=== PATIENT | female | born 1950 | race Caucasian/White ===

== ENCOUNTER 2018-08-18 07:30 | Day surgery (SDC) | payer MEDICARE, BC ==
[~2018-08-18 07:30] MED LIST: Cefuroxime 10 MG/ML SYRINGE EYERT SCH; Lidocaine 1% PF 2 ML SDV INJECT SCH; Pilocarpine 4% Ophth Soln 15 ML Bot EYERT SCH; Polymyxin B/Trimethoprim 10 ML Bottle EYERT SCH
--- NOTE | 2018-08-18 08:08 | PCM.PREANE ---
Preanesthetic Assessment - Procedure Proposed Procedure: right cataract - Anesthesia/Transfusion/Family Hx Anesthesia History: Prior Anesthesia Without Reaction Family History of Anesthesia Reaction: No Transfusion History: No Prior Transfusion(s) - Review of Systems General: No Symptoms Pulmonary: No Symptoms Cardiovascular: No Symptoms Gastrointestinal: No Symptoms Neurological: No Symptoms Other: Reports: None - Physical Assessment NPO Status Date: 08/17/18 NPO Status Time: 20:00 Pulse: 57 O2 Sat by Pulse Oximetry: 95 Respiratory Rate: 16 Blood Pressure: 130/75 Temperature: 97.7 F Height: 5 ft 3 in Weight: 79.379 kg ASA Class: 2 Mental Status: Alert & Oriented x3 Airway Class: Mallampati = 1 Dentition: Reports: Normal Dentition, Implants Thyro-Mental Finger Breadths: 3 Mouth Opening Finger Breadths: 3 ROM/Head Extension: Full Lungs: Clear to Auscultation, Normal Respiratory Effort Cardiovascular: Regular Rate, Regular Rhythm - Allergies Allergies/Adverse Reactions: Allergies Allergy/AdvReac Type Severity Reaction Status Date / Time Iodinated Contrast- Oral and Allergy Swelling Verified 08/17/18 15:33 IV Dye [Iodinated Contrast Media - IV Dye] Penicillins Allergy Swelling Verified 08/17/18 15:33 Sulfa (Sulfonamide Allergy Redness Verified 08/17/18 15:33 Antibiotics) - Blood Blood Available: No - Acknowledgements Anesthesia Type Planned: MAC Pt an Appropriate Candidate for the Planned Anesthesia: Yes Alternatives and Risks of Anesthesia Discussed w Pt/Guardian: Yes Pt/Guardian Understands and Agrees with Anesthesia Plan: Yes PreAnesthesia Questionnaire HEENT History: Reports: Cataract Cardiovascular History: Reports: High Cholesterol, Hypertension Respiratory History: Reports: None Gastrointestinal History: Reports: None Genitourinary History: Reports: None Musculoskeletal History: Reports: None, Arthritis (pt states 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 see 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 clerk 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) Neurological History: Reports: None Psychiatric History: Reports: None Endocrine/Metabolic History: Reports: None, Obesity/BMI 30+ - Past Surgical History Head Surgeries/Procedures: Reports: None HEENT Surgical History: Reports: None GI Surgical History: Reports: Cholecystectomy, Colon (resection for desmoid tumor), Hernia, Inguinal Neurological Surgical History: Reports: Other (See Below) (neck) Musculoskeletal Surgical History: Reports: Knee Replacement ((B)) - SUBSTANCE USE Smoking Status *Q: Former Smoker Tobacco Use Within Last Twelve Months: No Second Hand Smoke Exposure: No Days Per Week of Alcohol Use: 0 Recreational Drug Use History: No - HOME MEDS Home Medications: Home Meds Aspirin [Halfprin] 81 mg PO DAILY 06/16/14 [History] Diclofenac Sodium [Voltaren 1% Gel] 100 gr TOP ASDIRECTED PRN 06/16/14 [History] Lisinopril 10 mg PO DAILY 06/16/14 [History] Meloxicam [Mobic] 15 mg PO DAILY 06/16/14 [History] Pravastatin [Pravachol] 20 mg PO DAILY 06/16/14 [History] Calcium Carb & Citrate/Vit D3 [Calcium + D3 ER Tablet] 1 tab PO DAILY 07/13/18 [ History] Carboxymethylcellulose Sodium [Thera Tears] 1 dose EYEBOTH ASDIRECTED 07/13/18 [ History] Cholecalciferol (Vitamin D3) [Vitamin D3] 5,000 unit PO DAILY 07/13/18 [History] Cyanocobalamin/Folic Acid [Vitamin K76-Yjcsd Acid] 1 tab PO DAILY 07/13/18 [ History] Magnesium 30 mg PO DAILY 07/13/18 [History] - CURRENT (IN HOUSE) MEDS Current Meds: Current Medications Brimonidine Tartrate (Alphagan 0.2% Ophth Soln) 0 ml EYERT ASDIRECTED JERARDO Stop: 08/18/18 18:00 Cefuroxime Sodium (Zinacef) 0 mg EYERT ASDIRECTED JERARDO Stop: 08/18/18 18:00 Lidocaine HCl (Xylocaine-Mpf 1%) 0 ml INJECT ASDIRECTED JERARDO Stop: 08/18/18 18:00 Ofloxacin (Ocuflox 0.3% Ophth Soln) 0 ml EYERT ONETIME JERARDO Stop: 08/18/18 18:00 Phenylephrine HCl (Sreekanth-Synephrine 2.5% Ophth Soln) 0 ml EYERT ASDIRECTED JERARDO Stop: 08/18/18 18:00 Pilocarpine HCl (Pilocar 4% Ophth Soln) 0 ml EYERT ASDIRECTED JERARDO Stop: 08/18/18 18:00 Tetracaine HCl (Tetracaine 0.5% Steri-Unit Lor) 0 ml EYERT ASDIRECTED JERARDO Stop: 08/18/18 18:00 Tropicamide (Mydriacyl 1% Oph Soln) 0 ml EYERT ASDIRECTED JERARDO Stop: 08/18/18 18:00 Discontinued Medications Cefuroxime Sodium (Zinacef) 0 mg EYERT ASDIRECTED JERARDO Stop: 08/18/18 18:00 Polymyxin/Trimethoprim Sulfate (Polytrim Ophth Soln) 0 ml EYERT ASDIRECTED JERARDO Stop: 08/18/18 18:00
[2018-08-18] MEDS: Ofloxacin 0.3% Ophth Soln 5 ML Bottle EYERT SCH ×2 (08:21→09:20)
[2018-08-18] MEDS: Brimonidine 0.2% Ophth Soln 5 ML Bottle EYERT SCH ×3 (08:26→10:23)
[2018-08-18] MEDS: Phenylephrine 2.5% Ophth Soln 2 ML Bot EYERT SCH ×5 (08:33→10:05)
[2018-08-18] MEDS: Tropicamide 1% Ophth Soln 15 ML Bottle EYERT SCH ×4 (08:38→09:40)
[2018-08-18] MEDS: Tetracaine HCl/PF 0.5% 4 ML Bottle EYERT SCH ×2 (09:56→10:14)
[2018-08-18 10:28] VITALS: BP 136/72
--- NOTE | 2018-08-18 10:28 | PCM48HPAN ---
Post Anesthesia Note - EVALUATION WITHIN 48HRS OF ANESTHETIC Vital Signs in Normal Range: Yes Patient Participated in Evaluation: Yes Respiratory Function Stable: Yes Airway Patent: Yes Cardiovascular Function Stable: Yes Hydration Status Stable: Yes Pain Control Satisfactory: Yes Nausea and Vomiting Control Satisfactory: Yes Mental Status Recovered: Yes Pulse Rate: 64 SaO2: 95 Resp Rate: 16 Temperature: 36.5 C Blood Pressure: 136/72
== END 2018-08-18 10:39 | disposition home or self-care (01) ==
LOC: JD.SDS 07:30
PROVIDERS: ATTEND Ophthalmology
DX: H25.811 Combined forms of age-related cataract, right eye (principal); I10 Essential (primary) hypertension; E78.00 Pure hypercholesterolemia, unspecified; G43.909 Migraine, unspecified, not intractable, without status migrainosus; M19.90 Unspecified osteoarthritis, unspecified site; E66.9 Obesity, unspecified; Z68.31 Body mass index [BMI] 31.0-31.9, adult; Z88.0 Allergy status to penicillin; Z88.2 Allergy status to sulfonamides; Z91.041 Radiographic dye allergy status; Z98.42 Cataract extraction status, left eye; Z96.1 Presence of intraocular lens; Z87.891 Personal history of nicotine dependence; Z79.82 Long term (current) use of aspirin; Z79.1 Long term (current) use of non-steroidal anti-inflammatories (NSAID); Z79.899 Other long term (current) drug therapy
CPT/HCPCS: 66984; A9270; J0697; C1780; J2001

== ENCOUNTER 2018-12-20 17:28 | Emergency (ER) | payer MEDICARE, BC ==
[2018-12-20 17:38] VITALS: BP 147/82
[2018-12-20] MEDS ORDERED: Sodium Chloride 0.9% 10 ML Syringe FLUSH PRN (18:18)
[2018-12-20] MEDS ORDERED: Sodium Chloride 0.9% 1,000 ML IV ONE ×2 (18:18→19:29)
--- NOTE | 2018-12-20 18:37 | EDM.PDOC ---
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 The patient states that she had a hysteroscopy done by Dr. Barlow at [facility] on December 10, she states that they removed a cyst on the vagina and 2 polyps in the uterus. The patient felt well after this. She states that around midnight last night she started having some heavy bleeding which did get better after a couple hours. She notes that she was soaking through a maxi pad every hour however. She states in the morning this subsided, but around 4 PM she noticed a gush of blood again, where she started soaking through a pad per hour again. She denies any feelings of being dizzy or lightheaded during this time. She states that there were many clots with the bleeding as well. She states that she is having some lower back pain with some abdominal cramping, similar to when she used to get periods before menopause. She states that she was able to take some Tylenol and this did help with the pain. The triage nurse noted that when she started her IV, the patient had a vasovagal reaction, her heart rate decreased to 40bpm and she became very pale. The patient notes that she does not like needles and that this is very common for her. Lower Back Pain Score (Numeric/FACES): 6 - Related Data Allergies Allergy/AdvReac Type Severity Reaction Status Date / Time Iodinated Contrast- Oral and Allergy Swelling Verified 12/20/18 20:22 IV Dye [Iodinated Contrast Media - IV Dye] Penicillins Allergy Swelling Verified 12/20/18 20:22 Sulfa (Sulfonamide Allergy Redness Verified 12/20/18 20:22 Antibiotics) Home Meds: Home Meds Aspirin [Halfprin] 81 mg PO DAILY 06/16/14 [History] Diclofenac Sodium [Voltaren 1% Gel] 100 gr TOP ASDIRECTED PRN 06/16/14 [History] Lisinopril 10 mg PO DAILY 06/16/14 [History] Meloxicam [Mobic] 15 mg PO DAILY 06/16/14 [History] Pravastatin [Pravachol] 20 mg PO DAILY 06/16/14 [History] Calcium Carb & Citrate/Vit D3 [Calcium + D3 ER Tablet] 1 tab PO DAILY 07/13/18 [ History] Carboxymethylcellulose Sodium [Thera Tears] 1 dose EYEBOTH ASDIRECTED 07/13/18 [ History] Cholecalciferol (Vitamin D3) [Vitamin D3] 5,000 unit PO DAILY 07/13/18 [History] Magnesium Glycinate [Mag Glycinate] 200 mg PO DAILY 12/20/18 [History] medroxyPROGESTERone [Provera] 10 mg PO BID #10 tab 12/20/18 [Rx] Past Medical History HEENT History: Reports: Cataract Cardiovascular History: Reports: High Cholesterol, Hypertension Respiratory History: Reports: None Gastrointestinal History: Reports: None Genitourinary History: Reports: None W[employer]ER History: Reports: Other (See Below) Other [employer]EL[employer]ER History: cyst on vagina removed and 2 polyps from uterus Musculoskeletal History: Reports: None, Arthritis Neurological History: Reports: None Psychiatric History: Reports: None Endocrine/Metabolic History: Reports: None, Obesity/BMI 30+ - Past Surgical History Head Surgeries/Procedures: Reports: None HEENT Surgical History: Reports: None GI Surgical History: Reports: Cholecystectomy, Colon, Hernia, Inguinal, Other ( See Below) Other GI Surgeries/Procedures: cecum removed Neurological Surgical History: Reports: Other (See Below) Musculoskeletal Surgical History: Reports: Knee Replacement Social & Family History - Tobacco Use Smoking Status *Q: Never Smoker - Caffeine Use Caffeine Use: Reports: Coffee - Recreational Drug Use Recreational Drug Use: No ED ROS GENERAL - Review of Systems Review Of Systems: See Below Constitutional: Reports: No Symptoms HEENT: Reports: No Symptoms Respiratory: Reports: No Symptoms Cardiovascular: Reports: No Symptoms Endocrine: Reports: No Symptoms GI/Abdominal: Reports: Abdominal Pain (lower abd/pelvic pain). Denies: Constipation, Diarrhea, Nausea, Vomiting : Reports: Other (heavy vaginal bleeding with clots) Musculoskeletal: Reports: Back Pain (low back pain) Skin: Reports: Pallor Neurological: Reports: Dizziness Psychiatric: Reports: No Symptoms ED EXAM, RENAL/ - Physical Exam Exam: See Below Exam Limited By: No Limitations General Appearance: Alert, WD/WN, No Apparent Distress (Patient is laying flat on the ER cot, is very pale but is not complaining of any dizziness.) Eye Exam: Bilateral Eye: Normal Inspection Ears: Normal External Exam Nose: Normal Inspection Throat/Mouth: Normal Inspection, Normal Lips, Normal Teeth, Normal Gums, Normal Oropharynx, Normal Voice, No Airway Compromise Head: Atraumatic, Normocephalic Neck: Normal Inspection Respiratory/Chest: No Respiratory Distress, Lungs Clear, Normal Breath Sounds, No Accessory Muscle Use, Chest Non-Tender Cardiovascular: Normal Peripheral Pulses, Regular Rate, Rhythm, No Murmur GI/Abdominal: Normal Bowel Sounds, Soft, No Distention, No Mass, Tender ( suprapubically and to RLQ) (Female) Exam: Vaginal Bleeding (on general inspection, patient has a towel between legs that is visibly soaked.) Extremities: Normal Inspection, Normal Capillary Refill Neurological: Alert, Oriented, Normal Cognition, No Motor/Sensory Deficits Psychiatric: Normal Affect, Normal Mood Skin Exam: Warm, Dry, Intact, No Rash, Pallor (generalized) Course - Vital Signs Last Recorded V/S: Last Vital Signs Temp 98.1 F 12/20/18 17:34 Pulse 76 12/20/18 17:34 Resp 18 12/20/18 17:34 BP 147/82 H 12/20/18 17:34 Pulse Ox 93 L 12/20/18 17:34 - Orders/Labs/Meds Orders: Active Orders 24 hr Category Date Time Status Notify Provider Consults [RC] ASDIRECTED Care 12/20/18 20:44 Active Oxygen Therapy Adult [Oxygen Therapy, ED] [RC] Care 12/20/18 18:19 Active ASDIRECTED Peripheral IV Care [RC] . DIRECTED Care 12/20/18 18:19 Active Consult to Physician [CONS] Stat Cons 12/20/18 20:44 Active PATIENT RETYPE [BBK] Routine Lab 12/20/18 18:52 Ordered Sodium Chloride 0.9% [Normal Saline] 1,000 ml Med 12/20/18 19:29 Active IV ASDIRECTED Sodium Chloride 0.9% [Saline Flush] Med 12/20/18 18:18 Active 10 ml FLUSH ASDIRECTED PRN Peripheral IV Insertion Adult [OM.PC] Routine Oth 12/20/18 18:18 Ordered Medication Orders Sodium Chloride (Normal Saline) 1,000 mls @ 250 mls/hr IV ASDIRECTED ONE Stop: 12/20/18 23:28 Last Admin: 12/20/18 19:30 Dose: 250 mls/hr Sodium Chloride (Saline Flush) 10 ml FLUSH ASDIRECTED PRN PRN Reason: Keep Vein Open Last Admin: 12/20/18 18:26 Dose: 10 ml Labs: Laboratory Tests 12/20/18 12/20/18 12/20/18 Range/Units 18:00 18:00 18:00 WBC 7.74 (3.98-10.04) K/mm3 RBC 4.32 (3.98-5.22) M/mm3 Hgb 12.6 (11.2-15.7) gm/L Hct 40.8 (34.1-44.9) % MCV 94.4 (79.4-94.8) fl MCH 29.2 (25.6-32.2) pg MCHC 30.9 L (32.2-35.5) g/dl RDW Std Deviation 50.1 H (36.4-46.3) fL Plt Count 183 (182-369) K/mm3 MPV 11.8 (9.4-12.3) fl Neutrophils % (Manual) 86 H (40-60) % Band Neutrophils % 0 (0-10) % Lymphocytes % (Manual) 10 L (20-40) % Atypical Lymphs % 0 % Monocytes % (Manual) 2 (2-10) % Eosinophils % (Manual) 2 (0.7-5.8) % Basophils % (Manual) 0 L (0.1-1.2) Platelet Estimate Adequate RBC Morph Comment Normal Sodium 139 (136-145) mEq/L Potassium 4.2 (3.5-5.1) mEq/L Chloride 103 (98-107) mEq/L Carbon Dioxide 29 (21-32) mEq/L Anion Gap 11.2 (5-15) BUN 25 H (7-18) mg/dL Creatinine 0.9 (0.55-1.02) mg/dL Est Cr Clr Drug Dosing 44.52 mL/min Estimated GFR (MDRD) > 60 (>60) mL/min BUN/Creatinine Ratio 27.8 H (14-18) Glucose 103 (80-115) mg/dL Calcium 9.1 (8.5-10.1) mg/dL Total Bilirubin 0.3 (0.2-1.0) mg/dL AST 22 (15-37) U/L ALT 31 (14-59) U/L Alkaline Phosphatase 89 (46-116) U/L Total Protein 7.0 (6.4-8.2) g/dl Albumin 3.4 (3.4-5.0) g/dl Globulin 3.6 gm/dL Albumin/Globulin Ratio 0.9 L (1-2) Blood Type O POSITIVE Gel Antibody Screen Negative Meds: Medications Generic Name Dose Route Start Last Admin Trade Name Freq PRN Reason Stop Dose Admin Sodium Chloride 1,000 mls @ 250 mls/hr 12/20/18 19:29 12/20/18 19:30 Normal Saline IV 12/20/18 23:28 250 mls/hr ASDIRECTED ONE Administration Sodium Chloride 10 ml 12/20/18 18:18 12/20/18 18:26 Saline Flush FLUSH 10 ml ASDIRECTED PRN Administration Keep Vein Open Discontinued Medications Generic Name Dose Route Start Last Admin Trade Name Freq PRN Reason Stop Dose Admin Sodium Chloride 1,000 mls @ 999 mls/hr 12/20/18 18:18 12/20/18 18:25 Normal Saline IV 12/20/18 19:18 999 mls/hr ONETIME ONE Administration Medroxyprogesterone Acetate 40 mg 12/20/18 20:27 12/20/18 21:20 Provera PO 12/20/18 20:28 Not Given DAILY ONE Medroxyprogesterone Acetate 10 mg 12/20/18 20:48 Provera PO 12/20/18 20:49 DAILY ONE Megestrol Acetate 40 mg 12/20/18 21:43 12/20/18 21:59 Megace 40 Mg/Ml Susp PO 12/20/18 21:44 40 mg ONETIME ONE Administration - Re-Assessments/Exams Free Text/Narrative Re-Assessment/Exam: 12/20/18 18:39 Patient presents to the ED for the evaluation of vaginal bleeding after a surgical procedure. As the ER was fairly busy, the triage nurse did put in a IV , CBC, CMP, type and screen for initial labs. I did order IV fluids to be started, as we wait for labs to determine how low she is on her hemoglobin. The patient is very pallid on exam. 12/20/18 19:11 Patient's hemoglobin is within normal limits at this ED visit. She is still getting IV fluids, and we will consult OB to see if there is any other modality they recommend for management in the ER today. 12/20/18 20:05 Dr. Cabral, OB button facing machine operator is not very worried with a hemoglobin of 12.6 today. He does not think there is any obvious sign for hospital admission at this time. The patient has gotten 1 L of fluids, and is on his second bag of fluids. He did suggest Provera 10 mg twice a day until she can be seen by the surgeon that did hysteroscopy. He states that she should call early Friday to see if she cannot be urgently seen. 12/20/18 20:42 Patient was reassessed at bedside, she is still actively bleeding per her vagina , and did pass a relatively large clot, this was almost 2 handfuls. I did call Dr. Cabral back again and let him know that she was still actively bleeding he will come in to assess the patient for possible admission for observation overnight. 12/20/18 20:52 RN informed me that she cannot find the provera in stock in the [facility]. I will d/ c the order and let Dr. Cabral order what he would like to be given. 12/20/18 21:43 Dr. Cabral did come in to evaluate the patient, the patient is not actively bleeding per vagina at this time. He did discuss the option for admission versus observation at home. The patient wishes to go home at this time. If she were worried about her . He is looking for a suitable replacement to the Provera, as we do not stock in the hospital. [facility] emergency department is open tomorrow from 1 to 3 PM, so she could get Provera from there. But as stated above he would like to have her have something in the ED tonight to start. 12/20/18 21:57 Dr. Cabral has ordered Megace to be given to the patient tonight, and I will provide the patient with prescription for Provera 10 mg twice a day to the [facility] located in [facility] emergency department. Departure - Departure Time of Disposition: 22:12 Disposition: Home, Self-Care 01 Condition: Fair Clinical Impression: Excessive vaginal bleeding - Discharge Information *PRESCRIPTION DRUG MONITORING PROGRAM REVIEWED*: No *COPY OF PRESCRIPTION DRUG MONITORING REPORT IN PATIENT ROBERT: No Prescriptions: medroxyPROGESTERone [Provera] 10 mg PO BID #10 tab Referrals: Jaky Magallanes, [employer] [employer] [Primary Care Provider] - Additional Instructions: You have been evaluated in the ED today for your vaginal bleeding. You have been given IV fluids to help alleviate this. Your hemoglobin at today' s visit was 12.6, which is within normal limits at this time. You did not require any blood products at today's visit. You were evaluated by our machinist mate on-call, Dr. Cabral. He did give you a dose of Megace in the ER for initial management, and has recommended that you get progesterone, 10 mg twice a day until he can be evaluated by your OB surgeon. I have provided you with an order for the progesterone, this was electronically sent to the [facility] located in the [facility]. This pharmacy is only open from 1 to 3 PM tomorrow afternoon, you will have to go during that timeframe to get this medication. We do not carry this medication in the hospital, so unfortunately we cannot provide this medication to you. Please return to the ED if you should develop any worsening dizziness/ lightheadedness, increased vaginal bleeding, or faintness. Recommend that you go home and get a good night sleep tonight. Please follow- up with your OB surgeon as early as possible on Friday. - My Orders Last 24 Hours: My Active Orders 12/20/18 18:18 Sodium Chloride 0.9% [Saline Flush] 10 ml FLUSH ASDIRECTED PRN Peripheral IV Insertion Adult [OM.PC] Routine 12/20/18 18:19 Oxygen Therapy Adult [Oxygen Therapy, ED] [RC] ASDIRECTED Peripheral IV Care [RC] . DIRECTED 12/20/18 18:52 PATIENT RETYPE [BBK] Routine 12/20/18 19:29 Sodium Chloride 0.9% [Normal Saline] 1,000 ml IV ASDIRECTED 12/20/18 20:44 Notify Provider Consults [RC] ASDIRECTED Consult to Physician [CONS] Stat - Assessment/Plan Last 24 Hours: My Active Orders 12/20/18 18:18 Sodium Chloride 0.9% [Saline Flush] 10 ml FLUSH ASDIRECTED PRN Peripheral IV Insertion Adult [OM.PC] Routine 12/20/18 18:19 Oxygen Therapy Adult [Oxygen Therapy, ED] [RC] ASDIRECTED Peripheral IV Care [RC] . DIRECTED 12/20/18 18:52 PATIENT RETYPE [BBK] Routine 12/20/18 19:29 Sodium Chloride 0.9% [Normal Saline] 1,000 ml IV ASDIRECTED 12/20/18 20:44 Notify Provider Consults [RC] ASDIRECTED Consult to Physician [CONS] Stat
[2018-12-20] MEDS ORDERED: Megestrol Susp 40 MG/ML 10 ML UD Cup PO ONE (21:43)
--- NOTE | 2018-12-20 22:00 | PCM.CONS ---
H&P History of Present Illness - General Date of Service: 12/20/18 Admit Problem/Dx: Abnormal uterine bleeding after recent hysteroscopy Source of Information: Patient, Family History Limitations: Reports: No Limitations - History of Present Illness Initial Comments - Free Text/Narative: Ani Romero is a 68-year-old postmenopausal female who presented for one-day history of abnormal uterine bleeding. She reports that the bleeding started last night around midnight where she started passing large clots and was having bright red bleeding. She was having to change a pad about every 30-60 minutes but then earlier this morning it stopped and she was able to get some sleep. In the afternoon the bleeding started to come back and was heavier again where she was passing large clots. She states at one point she was sitting on the toilet and the blood was running out without slowing down much. She decided that she should come to the emergency department after this bleeding. She denies any abdominal pain or cramping. Denies any pelvic pain or cramping. Reports that she is having some low back pain that she rates at 6/10. Denies any dysuria, urinary frequency or urgency. Denies any problems with bowel movements. She is certain that this is coming from the vagina. She denies any shortness of breath. Denies any chest pain. Denies any lightheadedness or dizziness. She states that she did have a hysteroscopy with removal of 2 uterine polyps and a vaginal cyst on 12/10/[address] Barlow at the [facility] in [place]. Onset of Symptoms: Reports: Sudden Duration of Symptoms: Reports: Hour(s): (20), Heavy Location: Reports: Back, Pelvis Severity: Moderate (bleeding with blood clots) Lower Back Pain Score (Numeric/FACES): 6 - Related Data Allergies/Adverse Reactions: Allergies Allergy/AdvReac Type Severity Reaction Status Date / Time Iodinated Contrast- Oral and Allergy Swelling Verified 12/20/18 20:22 IV Dye [Iodinated Contrast Media - IV Dye] Penicillins Allergy Swelling Verified 12/20/18 20:22 Sulfa (Sulfonamide Allergy Redness Verified 12/20/18 20:22 Antibiotics) Home Medications: Home Meds Aspirin [Halfprin] 81 mg PO DAILY 06/16/14 [History] Diclofenac Sodium [Voltaren 1% Gel] 100 gr TOP ASDIRECTED PRN 06/16/14 [History] Lisinopril 10 mg PO DAILY 06/16/14 [History] Meloxicam [Mobic] 15 mg PO DAILY 06/16/14 [History] Pravastatin [Pravachol] 20 mg PO DAILY 06/16/14 [History] Calcium Carb & Citrate/Vit D3 [Calcium + D3 ER Tablet] 1 tab PO DAILY 07/13/18 [ History] Carboxymethylcellulose Sodium [Thera Tears] 1 dose EYEBOTH ASDIRECTED 07/13/18 [ History] Cholecalciferol (Vitamin D3) [Vitamin D3] 5,000 unit PO DAILY 07/13/18 [History] Magnesium Glycinate [Mag Glycinate] 200 mg PO DAILY 12/20/18 [History] medroxyPROGESTERone [Provera] 10 mg PO BID #10 tab 12/20/18 [Rx] Past Medical History HEENT History: Reports: Cataract Cardiovascular History: Reports: High Cholesterol, Hypertension Respiratory History: Reports: None Gastrointestinal History: Reports: None Genitourinary History: Reports: None [employer] History: Reports: Other (See Below) Other OB/BYN History: cyst on vagina removed and 2 polyps from uterus Musculoskeletal History: Reports: None, Arthritis Neurological History: Reports: None Psychiatric History: Reports: None Endocrine/Metabolic History: Reports: None, Obesity/BMI 30+ - Past Surgical History Head Surgeries/Procedures: Reports: None HEENT Surgical History: Reports: None GI Surgical History: Reports: Cholecystectomy, Colon, Hernia, Inguinal, Other ( See Below) Other GI Surgeries/Procedures: cecum removed Neurological Surgical History: Reports: Other (See Below) Musculoskeletal Surgical History: Reports: Knee Replacement Social & Family History - Tobacco Use Smoking Status *Q: Never Smoker - Caffeine Use Caffeine Use: Reports: Coffee - Recreational Drug Use Recreational Drug Use: No H&P Review of Systems - Review of Systems: Review Of Systems: See Below General: Denies: Fever, Chills, Malaise, Weakness Pulmonary: Denies: Shortness of Breath Cardiovascular: Denies: Chest Pain, Palpitations Gastrointestinal: Denies: Abdominal Pain, Constipation, Diarrhea Genitourinary: Reports: Other (Abnormal uterine bleeding). Denies: Dysuria, Frequency, Burning, Pain Exam - Exam Exam: See Below - Vital Signs Vital Signs: Last Vital Signs Temp 36.7 C 12/20/18 17:34 Pulse 76 12/20/18 17:34 Resp 18 12/20/18 17:34 BP 147/82 H 12/20/18 17:34 Pulse Ox 93 L 12/20/18 17:34 Weight: 101.605 kg - Exam General: Alert, Oriented HEENT: Conjunctiva Clear, EOMI Neck: Supple, Trachea Midline Lungs: Clear to Auscultation, Normal Respiratory Effort Cardiovascular: Regular Rate, Regular Rhythm GI/Abdominal Exam: Normal Bowel Sounds, Soft, Tender (mild suprapubic). No: Guarding, Rigid, Rebound (Female) Exam: Vaginal Bleeding (Old blood clots noted from the cervical os, no active bleeding), Other. No: Adnexal Mass, Adnexal Tenderness, Uterine Tenderness Skin: Warm, Dry, Intact Neuro Extensive - Mental Status: Normal Mood/Affect - Patient Data Lab Results Last 24 hrs: Laboratory Results - last 24 hr 12/20/18 12/20/18 12/20/18 Range/Units 18:00 18:00 18:00 WBC 7.74 (3.98-10.04) K/mm3 RBC 4.32 (3.98-5.22) M/mm3 Hgb 12.6 (11.2-15.7) gm/L Hct 40.8 (34.1-44.9) % MCV 94.4 (79.4-94.8) fl MCH 29.2 (25.6-32.2) pg MCHC 30.9 L (32.2-35.5) g/dl RDW Std Deviation 50.1 H (36.4-46.3) fL Plt Count 183 (182-369) K/mm3 MPV 11.8 (9.4-12.3) fl Neutrophils % (Manual) 86 H (40-60) % Band Neutrophils % 0 (0-10) % Lymphocytes % (Manual) 10 L (20-40) % Atypical Lymphs % 0 % Monocytes % (Manual) 2 (2-10) % Eosinophils % (Manual) 2 (0.7-5.8) % Basophils % (Manual) 0 L (0.1-1.2) Platelet Estimate Adequate RBC Morph Comment Normal Sodium 139 (136-145) mEq/L Potassium 4.2 (3.5-5.1) mEq/L Chloride 103 (98-107) mEq/L Carbon Dioxide 29 (21-32) mEq/L Anion Gap 11.2 (5-15) BUN 25 H (7-18) mg/dL Creatinine 0.9 (0.55-1.02) mg/dL Est Cr Clr Drug Dosing 44.52 mL/min Estimated GFR (MDRD) > 60 (>60) mL/min BUN/Creatinine Ratio 27.8 H (14-18) Glucose 103 (80-115) mg/dL Calcium 9.1 (8.5-10.1) mg/dL Total Bilirubin 0.3 (0.2-1.0) mg/dL AST 22 (15-37) U/L ALT 31 (14-59) U/L Alkaline Phosphatase 89 (46-116) U/L Total Protein 7.0 (6.4-8.2) g/dl Albumin 3.4 (3.4-5.0) g/dl Globulin 3.6 gm/dL Albumin/Globulin Ratio 0.9 L (1-2) Blood Type O POSITIVE Gel Antibody Screen Negative Result Diagrams: 12/20/18 18:00 12/20/18 18:00 Consult PN Assessment/Plan Procedures: Procedures AQUATIC THERAPY/EXERCISES (01/19/15) ASSAY OF AMYLASE (02/03/17) ASSAY OF CREATININE (01/31/15) ASSAY THYROID STIM HORMONE (05/11/18) BREAST TOMOSYNTHESIS BI (07/02/18) CATARACT SURG W/IOL 1 STAGE (08/18/18) CHEST X-RAY 2VW FRONTAL&LATL (02/03/17) COMP SCREEN MAMMOGRAM ADD-ON (06/06/16) COMPLETE CBC AUTOMATED (05/11/18) COMPREHEN METABOLIC PANEL (11/06/18) COMPUTER DX MAMMOGRAM ADD-ON (06/12/16) CT ABD & PELV W/CONTRAST (02/04/17) CT ABD & PELVIS W/O CONTRAST (08/14/15) DXA BONE DENSITY AXIAL (11/06/16) EMERGENCY DEPT VISIT (06/16/14) GAIT TRAINING THERAPY (02/06/15) HEPATITIS C AB TEST (05/14/17) LIPID PANEL (11/06/18) MANUAL THERAPY 1/> REGIONS (06/27/16) MASSAGE THERAPY (06/18/16) NEUROMUSCULAR REEDUCATION (12/17/17) OFFICE/OUTPATIENT VISIT EST (02/03/17) PT EVAL MOD COMPLEX 30 MIN (12/17/17) PT EVALUATION (06/18/16) ROUTINE VENIPUNCTURE (11/06/18) RPR S/N/AX/GEN/TRNK 2.5CM/< (06/16/14) SCR MAMMO BI INCL CAD (07/02/18) THERAPEUTIC ACTIVITIES (12/17/17) THERAPEUTIC EXERCISES (12/17/17) ULTRASOUND BREAST LIMITED (06/12/16) ULTRASOUND THERAPY (06/18/16) URINALYSIS AUTO W/O SCOPE (05/11/18) URINALYSIS AUTO W/SCOPE (05/13/17) X-RAY EXAM L-S SPINE 2/3 VWS (11/13/17) X-RAY EXAM OF FINGER(S) (06/16/14) (1) Abnormal uterine bleeding SNOMED Code(s): 53694795379645 Code(s): N93.9 - ABNORMAL UTERINE AND VAGINAL BLEEDING, UNSPECIFIED Current Visit: Yes Problem List Initiated/Reviewed/Updated: Yes Requesting Provider: Tootie Espinoza Date Consult Requested: 12/20/18 Reason for Consult: Abnormal uterine bleeding Patient History Reviewed: Yes Admission H&P Reviewed: Yes Consult Result/Summary:: Patient with abnormal uterine bleeding following recent hysteroscopic procedure with removal of 2 uterine polyps and a vaginal cyst per patient report. Patient had paperwork that was consistent with patient's statement. Patient had this procedure done on 12/10/[address] Barlow in [place]. Patient did not have significant vaginal bleeding after the procedure but the bleeding started this evening. Uncertain of the cause of the bleeding but it could be due to liquefication of blood clots from the procedure versus bleeding from the surgical bed. No active bleeding was noted on exam and do not think that the patient needs additional monitoring overnight. 1. Recommend treatment with progesterone containing medication at this time to try to decrease her abnormal uterine bleeding. Order placed for Megace 40 mg orally for one dose. Patient should start on Provera 10 mg twice daily tomorrow. Would recommend for patient to schedule follow-up appointment with Dr. Barlow sometime this week for follow-up and additional evaluation for possible treatment as needed. 2. Do not suspect significant continued bleeding at this time without active bleeding coming from the cervical os. The cervix was closed on bimanual exam. Do not feel that the patient needs to be monitored overnight without significant active bleeding and no signs or symptoms of acute blood loss anemia. Say Cabral M.D. 10:08 PM 12/20/2018 Notified Requestor: Yes Time Spent (in minutes): 30
== END 2018-12-20 22:28 | disposition home or self-care (01) ==
LOC: JD.ED 17:28
DX: N93.9 Abnormal uterine and vaginal bleeding, unspecified (principal); I10 Essential (primary) hypertension; M19.90 Unspecified osteoarthritis, unspecified site; E66.9 Obesity, unspecified; Z91.041 Radiographic dye allergy status; Z88.2 Allergy status to sulfonamides; Z79.82 Long term (current) use of aspirin; Z79.899 Other long term (current) drug therapy; Z90.49 Acquired absence of other specified parts of digestive tract
CPT/HCPCS: 36415; 80053; 85007; 85027; 86850; 86900; 86901; 96360; 96361; 99284; A9270; J7040

== ENCOUNTER 2019-06-22 06:58 | Day surgery (SDC) | payer MEDICARE, BC ==
[~2019-06-22 06:58] MED LIST changes: -Cefuroxime 10 MG/ML SYRINGE EYERT SCH; +Lactated Ringers 1,000 ML IV SCH; -Lidocaine 1% PF 2 ML SDV INJECT SCH; +Lidocaine 1%/Sod Bicarbonate in NS 8.4% 1 ML Syringe IDERM PRN; -Pilocarpine 4% Ophth Soln 15 ML Bot EYERT SCH; -Polymyxin B/Trimethoprim 10 ML Bottle EYERT SCH; +Sodium Chloride 0.9% 10 ML Syringe FLUSH PRN
--- NOTE | 2019-06-22 07:25 | PCM.PREANE ---
Preanesthetic Assessment - Anesthesia/Transfusion/Family Hx Anesthesia History: Prior Anesthesia Without Reaction Transfusion History: No Prior Transfusion(s) - Review of Systems General: No Symptoms Pulmonary: No Symptoms Cardiovascular: No Symptoms Gastrointestinal: No Symptoms Neurological: No Symptoms Other: Reports: None - Physical Assessment NPO Status Date: 06/22/19 NPO Status Time: 04:00 Vital Signs: 154/70, 71, 16, 97.6, 95% ASA Class: 2 Mental Status: Alert & Oriented x3 Airway Class: Mallampati = 1 Dentition: Reports: Bladen(s), Bridge, Implants Thyro-Mental Finger Breadths: 3 Mouth Opening Finger Breadths: 3 ROM/Head Extension: Full Lungs: Clear to Auscultation, Normal Respiratory Effort Cardiovascular: Regular Rate, Regular Rhythm - Allergies Allergies/Adverse Reactions: Allergies Allergy/AdvReac Type Severity Reaction Status Date / Time Iodinated Contrast Media Allergy Swelling Verified 06/21/19 14:39 [Iodinated Contrast Media - IV Dye] Penicillins Allergy Swelling Verified 06/21/19 14:39 Sulfa (Sulfonamide Allergy Redness Verified 06/21/19 14:39 Antibiotics) - Acknowledgements Anesthesia Type Planned: MAC Pt an Appropriate Candidate for the Planned Anesthesia: Yes Alternatives and Risks of Anesthesia Discussed w Pt/Guardian: Yes Pt/Guardian Understands and Agrees with Anesthesia Plan: Yes PreAnesthesia Questionnaire HEENT History: Reports: Cataract, Impaired Vision Cardiovascular History: Reports: High Cholesterol, Hypertension Respiratory History: Reports: Other (See Below) Other Respiratory History: Viral URI with cough, snoring Gastrointestinal History: Reports: Diverticulosis Other Gastrointestinal History: abdominal pain, abdominal desmoid tumor LAP RUNNER History: Reports: Other (See Below) Other OB/BYN History: cyst on vagina removed and 2 polyps from uterus Musculoskeletal History: Reports: Arthritis, Back Pain, Chronic Neurological History: Reports: None, Neuropathy, Peripheral, Other (See Below) Other Neuro History: intercostal neuralgia, cervical laminectomy Psychiatric History: Reports: None Endocrine/Metabolic History: Reports: None, Obesity/BMI 30+ Hematologic History: Reports: None Immunologic History: Reports: None Oncologic (Cancer) History: Reports: None Dermatologic History: Reports: None - Past Surgical History Head Surgeries/Procedures: Reports: None HEENT Surgical History: Reports: Cataract Surgery Cardiovascular Surgical History: Reports: None Respiratory Surgical History: Reports: None GI Surgical History: Reports: Cholecystectomy, Colon, Colonoscopy, Hernia, Inguinal, Other (See Below) Other GI Surgeries/Procedures: cecum removed Female Surgical History: Reports: Tubal Ligation Male Surgical History: Reports: None Neurological Surgical History: Reports: C-Spine, Other (See Below) Musculoskeletal Surgical History: Reports: Knee Replacement Oncologic Surgical History: Reports: None Dermatological Surgical History: Reports: None - SUBSTANCE USE Smoking Status *Q: Former Smoker Recreational Drug Use History: No - HOME MEDS Home Medications: Home Meds Aspirin [Halfprin] 81 mg PO DAILY 06/16/14 [History] Diclofenac Sodium [Voltaren 1% Gel] 100 gr TOP ASDIRECTED PRN 06/16/14 [History] Lisinopril 10 mg PO DAILY 06/16/14 [History] Meloxicam [Mobic] 15 mg PO DAILY PRN 06/16/14 [History] Pravastatin [Pravachol] 20 mg PO DAILY 06/16/14 [History] Calcium Carb, Citrate/Vit D3 [Calcium + D3 ER Tablet] 1 tab PO DAILY 07/13/18 [ History] Cholecalciferol (Vitamin D3) [Vitamin D3] 5,000 unit PO DAILY 07/13/18 [History] Magnesium Glycinate [Mag Glycinate] 200 mg PO DAILY 12/20/18 [History] - CURRENT (IN HOUSE) MEDS Current Meds: Current Medications Lactated Ringer's (Ringers, Lactated) 1,000 mls @ 125 mls/hr IV ASDIRECTED JERARDO Stop: 06/22/19 23:00 Lidocaine/Sodium Bicarbonate (Buffered Lidocaine 1% In Ns 8.4%) 0.25 ml IDERM ONETIME PRN PRN Reason: Prior to IV Start Stop: 06/22/19 18:00 Sodium Chloride (Saline Flush) 10 ml FLUSH ASDIRECTED PRN PRN Reason: Keep Vein Open Stop: 06/22/19 18:00
[2019-06-22] MEDS ORDERED: Propofol 200 MG/20 ML SDV ONE ×2 (07:53→08:30)
[2019-06-22] MEDS ORDERED: Lidocaine 1% 6 ML ONE (08:08)
--- NOTE | 2019-06-22 09:05 | PCM48HPAN ---
Post Anesthesia Note - EVALUATION WITHIN 48HRS OF ANESTHETIC Vital Signs in Normal Range: Yes Patient Participated in Evaluation: Yes Respiratory Function Stable: Yes Airway Patent: Yes Cardiovascular Function Stable: Yes Hydration Status Stable: Yes Pain Control Satisfactory: Yes Nausea and Vomiting Control Satisfactory: Yes Mental Status Recovered: Yes Vital Signs: Last Vital Signs Temp 97.6 F 06/22/19 08:55 Pulse 58 L 06/22/19 08:55 Resp 16 06/22/19 08:55 BP 144/71 H 06/22/19 08:55 Pulse Ox 94 L 06/22/19 08:55
--- NOTE | 2019-06-22 09:08 | PCM.PRNOTE ---
- Free Text/Narrative Note: Date: 06/22/2019 Endoscopist: Emile Valle MD Procedure: screening colonoscopy Findings: extensive diverticular disease throughout. Fair prep. evidence of ileocolonic anastomosis. Detailed Report: The patient was placed in left lateral decubitus position and brought to the GI suite. Timeout was performed. Visual inspection of the anus revealed a small skin tag, otherwise with no abnormality. Digital rectal exam was unremarkable. The colonoscope was advanced all the way to the ileocolonic anastomosis. Was noted to be redundant, with extensive diverticular disease, most notable in the sigmoid. The prep was fair. On retraction of the scope, mucosal surfaces were carefully inspected. No polyps were identified, no biopsies were obtained. No significant hemorrhoidal disease noted on retroflexion of the scope in the rectum. She tolerated the procedure well. Emile Valle MD General Surgery
[2019-06-22 09:55] VITALS: BP 161/88; PULSE 62
== END 2019-06-22 10:12 | disposition home or self-care (01) ==
LOC: JD.SDS 06:58
PROVIDERS: ATTEND Surgery
DX: Z12.11 Encounter for screening for malignant neoplasm of colon (principal); K57.90 Diverticulosis of intestine, part unspecified, without perforation or abscess without bleeding; K64.4 Residual hemorrhoidal skin tags; I10 Essential (primary) hypertension; E78.00 Pure hypercholesterolemia, unspecified; E78.5 Hyperlipidemia, unspecified; M19.90 Unspecified osteoarthritis, unspecified site; Z98.0 Intestinal bypass and anastomosis status; Z88.0 Allergy status to penicillin; Z88.2 Allergy status to sulfonamides; Z91.041 Radiographic dye allergy status; Z79.82 Long term (current) use of aspirin; Z79.899 Other long term (current) drug therapy; Z87.891 Personal history of nicotine dependence; Z80.0 Family history of malignant neoplasm of digestive organs
CPT/HCPCS: G0105; J2001; J2704; J7120

== ENCOUNTER 2021-03-19 07:07 | Day surgery (SDC) | payer MEDICARE, BC ==
[~2021-03-19 07:07] MED LIST changes: +Acetaminophen 325 MG Tab PO SCH; +Acetaminophen/HYDROcodone 325-5 MG Tab PO PRN; +Lidocaine 1% 4 ML ONE; +Midazolam 1 MG/ML 2 ML SDV ONE; +Propofol 200 MG/20 ML SDV ONE; +ceFAZolin 1 GM Vial ONE; +fentaNYL 100 MCG/2 ML SDV ONE; +oxyCODONE ER 10 MG TAB.ER PO SCH
--- NOTE | 2021-03-19 07:30 | PCM.PREANE ---
Preanesthetic Assessment - Anesthesia/Transfusion/Family Hx Anesthesia History: Prior Anesthesia Without Reaction Family History of Anesthesia Reaction: No Transfusion History: No Prior Transfusion(s) - Review of Systems General: No Symptoms Pulmonary: No Symptoms Cardiovascular: No Symptoms Gastrointestinal: No Symptoms Neurological: No Symptoms Other: Reports: None - Physical Assessment NPO Status Date: 03/18/21 NPO Status Time: 23:00 ASA Class: 3 Mental Status: Alert & Oriented x3 Airway Class: Mallampati = 1 Dentition: Reports: Normal Dentition Thyro-Mental Finger Breadths: 3 Mouth Opening Finger Breadths: 3 ROM/Head Extension: Full Lungs: Clear to Auscultation, Normal Respiratory Effort Cardiovascular: Regular Rate, Regular Rhythm, Murmurs - Allergies Allergies/Adverse Reactions: Allergies Allergy/AdvReac Type Severity Reaction Status Date / Time Iodinated Contrast Media Allergy Severe Swelling Verified 03/17/21 10:10 [Iodinated Contrast Media - IV Dye] Penicillins Allergy Swelling Verified 03/17/21 10:10 pregabalin [From Lyrica] Allergy Drowsiness Verified 03/17/21 10:10 Sulfa (Sulfonamide Allergy Redness Verified 03/17/21 10:10 Antibiotics) - Acknowledgements Anesthesia Type Planned: Spinal Pt an Appropriate Candidate for the Planned Anesthesia: Yes Alternatives and Risks of Anesthesia Discussed w Pt/Guardian: Yes Pt/Guardian Understands and Agrees with Anesthesia Plan: Yes PreAnesthesia Questionnaire HEENT History: Reports: Cataract, Impaired Vision Cardiovascular History: Reports: Heart Murmur, High Cholesterol, Hypertension Respiratory History: Reports: Other (See Below) Other Respiratory History: Viral URI with cough, snoring Gastrointestinal History: Reports: Diverticulosis Other Gastrointestinal History: abdominal pain, abdominal desmoid tumor Genitourinary History: Reports: None STORE MGR History: Reports: Other (See Below) Other OB/BYN History: cyst on vagina removed and 2 polyps from uterus Musculoskeletal History: Reports: Arthritis, Back Pain, Chronic, Other (See Below) Other Musculoskeletal History: left hip pain Neurological History: Reports: Neuropathy, Peripheral, Other (See Below) Other Neuro History: intercostal neuralgia, cervical laminectomy Psychiatric History: Reports: None Endocrine/Metabolic History: Reports: Obesity/BMI 30+ Hematologic History: Reports: None Immunologic History: Reports: None Oncologic (Cancer) History: Reports: None Dermatologic History: Reports: None - Infectious Disease History Infectious Disease History: Reports: None, Other (See Below) (AIDS) - Past Surgical History Head Surgeries/Procedures: Reports: None HEENT Surgical History: Reports: Cataract Surgery Cardiovascular Surgical History: Reports: None Respiratory Surgical History: Reports: None GI Surgical History: Reports: Appendectomy, Cholecystectomy, Colon, Colonoscopy, Hernia, Inguinal, Hernia Repair/Other, Other (See Below) Other GI Surgeries/Procedures: cecum removed Female Surgical History: Reports: Tubal Ligation, Other (See Below) Other Female Surgeries/Procedures: uterine myomectomy Male Surgical History: Reports: None Endocrine Surgical History: Reports: None Neurological Surgical History: Reports: C-Spine (FROM noted), Other (See Below) Musculoskeletal Surgical History: Reports: Knee Replacement Oncologic Surgical History: Reports: None Dermatological Surgical History: Reports: None - SUBSTANCE USE Tobacco Use Status *Q: Former Tobacco User Recreational Drug Use History: No - HOME MEDS Home Medications: Home Meds Calcium Carb, Citrate/Vit D3 [Calcium + D3 ER Tablet] 1 tab PO DAILY 07/13/18 [History] Cholecalciferol (Vitamin D3) [Vitamin D3] 5,000 unit PO DAILY 07/13/18 [History] Magnesium Glycinate [Mag Glycinate] 100 mg PO DAILY 12/20/18 [History] Aspirin [Aspirin EC] 325 mg PO BID #70 tab 03/16/21 [Rx] Hydrocodone/Acetaminophen [HYDROcodone-Acetaminophen 5-325 MG] 1 - 2 each PO Q6H PRN #40 tablet 03/16/21 [Rx] Aspirin 81 mg PO DAILY 03/17/21 [History] Diclofenac Sodium [Voltaren 1% Gel] 1 dose TOP QID PRN 03/17/21 [History] Losartan [Cozaar] 50 mg PO DAILY 03/17/21 [History] Meloxicam 15 mg PO DAILY PRN 03/17/21 [History] Potassium Gluconate [Potassium] 99 mg PO DAILY 03/17/21 [History] Pravastatin [Pravachol] 40 mg PO DAILY 03/17/21 [History] - CURRENT (IN HOUSE) MEDS Current Meds: Current Medications Acetaminophen (Acetaminophen 325 Mg Tab) 975 mg PO ONETIME JERARDO Stop: 03/19/21 13:00 Hydrocodone Bitart/Acetaminophen (Acetaminophen/Hydrocodone 325-5 Mg Tab) 2 tab PO ONETIME PRN PRN Reason: Pain Morphine Sulfate 8 mg/Epinephrine HCl 0.3 mg/Cefuroxime Sodium 750 mg/Ketorolac Tromethamine 30 mg/Sodium Chloride 7.9 ml 0 mg .XX ASDIRECTED PRN PRN Reason: Pain Stop: 03/19/21 18:00 Lactated Ringer's (Ringers, Lactated) 1,000 mls @ 125 mls/hr IV ASDIRECTED JERARDO Stop: 03/19/21 23:00 Lidocaine/Sodium Bicarbonate (Lidocaine 1%/Sod Bicarbonate In Ns 8.4% 1 Ml Syringe) 0.25 ml IDERM ONETIME PRN PRN Reason: Prior to IV Start Stop: 03/19/21 18:00 Oxycodone HCl (Oxycodone Er 10 Mg Tab.Er) 10 mg PO ONETIME JERARDO Stop: 03/19/21 13:00 Sodium Chloride (Sodium Chloride 0.9% 10 Ml Syringe) 10 ml FLUSH ASDIRECTED PRN PRN Reason: Keep Vein Open Stop: 03/19/21 18:00 Discontinued Medications Cefazolin Sodium (Cefazolin 1 Gm Vial) Confirm Administered Dose 2 gm .ROUTE .STK-MED ONE Stop: 03/19/21 06:42 Fentanyl (Fentanyl 100 Mcg/2 Ml Sdv) Confirm Administered Dose 100 mcg .ROUTE .STK-MED ONE Stop: 03/19/21 06:43 Lidocaine HCl (Xylocaine-Mpf 1%) Confirm Administered Dose 4 mls @ as directed .ROUTE .STK-MED ONE Stop: 03/19/21 06:42 Midazolam HCl (Midazolam 1 Mg/Ml 2 Ml Sdv) Confirm Administered Dose 2 mg .ROUTE .STK-MED ONE Stop: 03/19/21 06:43 Propofol (Propofol 200 Mg/20 Ml Sdv) Confirm Administered Dose 200 mg .ROUTE .STK-MED ONE Stop: 03/19/21 06:42
[2021-03-19] MEDS ORDERED: Vancomycin 1 GM SDV ONE (08:00)
[2021-03-19] MEDS ORDERED: ePHEDrine 50 MG/ML SDV ONE (08:32)
[2021-03-19] MEDS ORDERED: Ondansetron 4 MG/2 ML SDV IVPUSH PRN (08:38)
[2021-03-19] MEDS ORDERED: fentaNYL 100 MCG/2 ML SDV IVPUSH PRN (08:38)
[2021-03-19] MEDS ORDERED: diphenhydrAMINE 50 MG/ML SDV IVPUSH PRN (08:38)
--- NOTE | 2021-03-19 08:39 | PCM.PREANE ---
Preanesthetic Assessment - Anesthesia/Transfusion/Family Hx Anesthesia History: Prior Anesthesia Without Reaction Family History of Anesthesia Reaction: No Transfusion History: No Prior Transfusion(s) - Review of Systems Other: Reports: None - Physical Assessment NPO Status Date: 03/18/21 NPO Status Time: 23:00 Vital Signs: Last Vital Signs Temp 36.6 C 03/19/21 07:30 Pulse 70 03/19/21 07:30 Resp 18 03/19/21 07:30 BP 156/93 H 03/19/21 07:30 Pulse Ox 96 03/19/21 07:30 Height: 1.63 m Weight: 99.79 kg - Allergies Allergies/Adverse Reactions: Allergies Allergy/AdvReac Type Severity Reaction Status Date / Time Iodinated Contrast Media Allergy Severe Swelling Verified 03/17/21 10:10 [Iodinated Contrast Media - IV Dye] Penicillins Allergy Swelling Verified 03/17/21 10:10 pregabalin [From Lyrica] Allergy Drowsiness Verified 03/17/21 10:10 Sulfa (Sulfonamide Allergy Redness Verified 03/17/21 10:10 Antibiotics) PreAnesthesia Questionnaire HEENT History: Reports: Cataract, Impaired Vision Cardiovascular History: Reports: Heart Murmur, High Cholesterol, Hypertension Respiratory History: Reports: Other (See Below) Other Respiratory History: Viral URI with cough, snoring Gastrointestinal History: Reports: Diverticulosis Other Gastrointestinal History: abdominal pain, abdominal desmoid tumor Genitourinary History: Reports: None [employer] History: Reports: Other (See Below) Other OB/BYN History: cyst on vagina removed and 2 polyps from uterus Musculoskeletal History: Reports: Arthritis, Back Pain, Chronic, Other (See Below) Other Musculoskeletal History: left hip pain Neurological History: Reports: Neuropathy, Peripheral, Other (See Below) Other Neuro History: intercostal neuralgia, cervical laminectomy Psychiatric History: Reports: None Endocrine/Metabolic History: Reports: Obesity/BMI 30+ Hematologic History: Reports: None Immunologic History: Reports: None Oncologic (Cancer) History: Reports: None Dermatologic History: Reports: None - Infectious Disease History Infectious Disease History: Reports: None - Past Surgical History Head Surgeries/Procedures: Reports: None HEENT Surgical History: Reports: Cataract Surgery Cardiovascular Surgical History: Reports: None Respiratory Surgical History: Reports: None GI Surgical History: Reports: Appendectomy, Cholecystectomy, Colon, Colonoscopy, Hernia, Inguinal, Hernia Repair/Other, Other (See Below) Other GI Surgeries/Procedures: cecum removed Female Surgical History: Reports: Tubal Ligation, Other (See Below) Other Female Surgeries/Procedures: uterine myomectomy Male Surgical History: Reports: None Endocrine Surgical History: Reports: None Neurological Surgical History: Reports: C-Spine (FROM noted), Other (See Below) Musculoskeletal Surgical History: Reports: Knee Replacement Oncologic Surgical History: Reports: None Dermatological Surgical History: Reports: None - SUBSTANCE USE Tobacco Use Status *Q: Former Tobacco User Recreational Drug Use History: No - HOME MEDS Home Medications: Home Meds Calcium Carb, Citrate/Vit D3 [Calcium + D3 ER Tablet] 1 tab PO DAILY 07/13/18 [History] Cholecalciferol (Vitamin D3) [Vitamin D3] 5,000 unit PO DAILY 07/13/18 [History] Magnesium Glycinate [Mag Glycinate] 100 mg PO DAILY 12/20/18 [History] Aspirin [Aspirin EC] 325 mg PO BID #70 tab 03/16/21 [Rx] Hydrocodone/Acetaminophen [HYDROcodone-Acetaminophen 5-325 MG] 1 - 2 each PO Q6H PRN #40 tablet 03/16/21 [Rx] Aspirin 81 mg PO DAILY 03/17/21 [History] Diclofenac Sodium [Voltaren 1% Gel] 1 dose TOP QID PRN 03/17/21 [History] Losartan [Cozaar] 50 mg PO DAILY 03/17/21 [History] Meloxicam 15 mg PO DAILY PRN 03/17/21 [History] Potassium Gluconate [Potassium] 99 mg PO DAILY 03/17/21 [History] Pravastatin [Pravachol] 40 mg PO DAILY 03/17/21 [History] - CURRENT (IN HOUSE) MEDS Current Meds: Current Medications Acetaminophen (Acetaminophen 325 Mg Tab) 975 mg PO ONETIME JERARDO Stop: 03/19/21 13:00 Hydrocodone Bitart/Acetaminophen (Acetaminophen/Hydrocodone 325-5 Mg Tab) 2 tab PO ONETIME PRN PRN Reason: Pain Morphine Sulfate 8 mg/Epinephrine HCl 0.3 mg/Cefuroxime Sodium 750 mg/Ketorolac Tromethamine 30 mg/Sodium Chloride 7.9 ml 0 mg .XX ASDIRECTED PRN PRN Reason: Pain Stop: 03/19/21 18:00 Lactated Ringer's (Ringers, Lactated) 1,000 mls @ 125 mls/hr IV ASDIRECTED JERARDO Stop: 03/19/21 23:00 Lidocaine/Sodium Bicarbonate (Lidocaine 1%/Sod Bicarbonate In Ns 8.4% 1 Ml Syringe) 0.25 ml IDERM ONETIME PRN PRN Reason: Prior to IV Start Stop: 03/19/21 18:00 Oxycodone HCl (Oxycodone Er 10 Mg Tab.Er) 10 mg PO ONETIME JERARDO Stop: 03/19/21 13:00 Sodium Chloride (Sodium Chloride 0.9% 10 Ml Syringe) 10 ml FLUSH ASDIRECTED PRN PRN Reason: Keep Vein Open Stop: 03/19/21 18:00 Discontinued Medications Cefazolin Sodium (Cefazolin 1 Gm Vial) Confirm Administered Dose 2 gm .ROUTE .STK-MED ONE Stop: 03/19/21 06:42 Ephedrine Sulfate (Ephedrine 50 Mg/Ml Sdv) Confirm Administered Dose 50 mg .ROUTE .STK-MED ONE Stop: 03/19/21 08:33 Fentanyl (Fentanyl 100 Mcg/2 Ml Sdv) Confirm Administered Dose 100 mcg .ROUTE .STK-MED ONE Stop: 03/19/21 06:43 Lidocaine HCl (Xylocaine-Mpf 1%) Confirm Administered Dose 4 mls @ as directed .ROUTE .STK-MED ONE Stop: 03/19/21 06:42 Midazolam HCl (Midazolam 1 Mg/Ml 2 Ml Sdv) Confirm Administered Dose 2 mg .ROUTE .STK-MED ONE Stop: 03/19/21 06:43 Propofol (Propofol 200 Mg/20 Ml Sdv) Confirm Administered Dose 200 mg .ROUTE .STK-MED ONE Stop: 03/19/21 06:42 Tranexamic Acid (Tranexamic Acid 1,000 Mg/10 Ml Amp) Confirm Administered Dose 1,000 mg .ROUTE .STK-MED ONE Stop: 03/19/21 07:29 Vancomycin HCl (Vancomycin 1 Gm Sdv) Confirm Administered Dose 1 gm .ROUTE .STK- MED ONE Stop: 03/19/21 07:29 Vancomycin HCl (Vancomycin 1 Gm Sdv) Confirm Administered Dose 1 gm .ROUTE .STK- MED ONE Stop: 03/19/21 08:01
[2021-03-19] MEDS ORDERED: Propofol 200 MG/20 ML SDV ONE ×2 (08:54→09:22)
[2021-03-19] MEDS: Vancomycin 1 GM SDV ONE ×2 (09:35→09:44)
[2021-03-19] MEDS: Morphine 8 MG, EPINEPHrine 0.3 MG, Cefuroxime 750 MG, Ketorolac 30 MG, Sodium Chloride ... PRN ×10 (09:37→09:44)
[2021-03-19] MEDS ORDERED: Ondansetron 4 MG/2 ML SDV ONE (09:41)
[2021-03-19] MEDS ORDERED: Ketorolac 30 MG/ML SDV ONE (09:41)
[2021-03-19] MEDS ORDERED: Lactated Ringers 1,000 ML ONE (09:46)
--- NOTE | 2021-03-19 10:16 | PCM.POSTAN ---
POST ANESTHESIA ASSESSMENT - MENTAL STATUS Mental Status: Alert, Oriented - VITAL SIGNS Vital Signs: Last Vital Signs Temp 36.6 C 03/19/21 07:30 Pulse 70 03/19/21 07:30 Resp 18 03/19/21 07:30 BP 156/93 H 03/19/21 07:30 Pulse Ox 96 03/19/21 07:30 - RESPIRATORY Respiratory Status: Respiratory Rate WNL, Airway Patent, O2 Saturation Stable - CARDIOVASCULAR CV Status: Pulse Rate WNL, Blood Pressure Stable - GASTROINTESTINAL GI Status: No Symptoms - PAIN Pain Score: 0 - POST OP HYDRATION Hydration Status: Adequate & Stable
--- NOTE | 2021-03-19 10:42 | PCM48HPAN ---
Post Anesthesia Note - EVALUATION WITHIN 48HRS OF ANESTHETIC Vital Signs in Normal Range: Yes Patient Participated in Evaluation: Yes Respiratory Function Stable: Yes Airway Patent: Yes Cardiovascular Function Stable: Yes Hydration Status Stable: Yes Pain Control Satisfactory: Yes Nausea and Vomiting Control Satisfactory: Yes Mental Status Recovered: Yes Vital Signs: Last Vital Signs Temp 37.5 C 03/19/21 10:25 Pulse 65 03/19/21 10:25 Resp 12 03/19/21 10:25 BP 101/49 L 03/19/21 10:25 Pulse Ox 100 03/19/21 10:25
--- NOTE | 2021-03-19 11:12 | CR ---
Pelvis and left hip: AP view of the pelvis was obtained as well as crosstable lateral view of the left hip. Comparison: Prior CT left hip study of 02/28/21. Left hip prosthesis is seen. Components are aligned. Soft tissue air is seen. Sclerotic area is seen with the right femoral head compatible with bone island. No acute osseous abnormality is otherwise seen. Impression: 1. Satisfactory postop radiographic appearance of recently placed left hip prosthesis. Diagnostic code #2
[2021-03-19 17:08] VITALS: BP 117/67; PULSE 66
--- NOTE | 2021-04-03 10:56 | PCM.OPNOTE ---
- General Post-Op/Procedure Note Date of Surgery/Procedure: 03/19/21 Operative Procedure(s): left total hip arthroplasty with [employer] robotics Pre Op Diagnosis: left hip osteoarthrosis Post-Op Diagnosis: Same Anesthesia Technique: Local, MAC, Spinal Primary Surgeon: Deandre Yip Anesthesia Provider: Vilma Castellanos Spanish Instructor: Mami Lopez Spanish Instructor: Jana Frias EBL in mLs: 250 Complications: None Condition: Good Free Text/Narrative:: 54 cup 5 36+0
--- NOTE | 2021-04-03 12:08 | OR ---
DATE OF OPERATION: 03/19/2021 SURGEON: Deandre Yip MD OPERATION PERFORMED: Left total hip arthroplasty with [employer] robot[employer]. PREOPERATIVE DIAGNOSIS: Left hip osteoarthritis. POSTOPERATIVE DIAGNOSIS: Left hip osteoarthritis. ANESTHESIA: Local MAC with spinal. ANESTHESIA PROVIDER: Vilma Castellanos CRNA ASSISTANTS: Mami Lopez PA-C and Jana Frias LPN ESTIMATED BLOOD LOSS: 250 mL. COMPLICATIONS: None. CONDITION: Stable. IMPLANTS: 1. Ricardo size 54 mm solid Tritanium II acetabular cup. 2. Ricardo size 5 Accolade II stem. 3. [place] size 36, +0 Biolox femoral head. DESCRIPTION OF PROCEDURE: The patient was identified in the preoperative holding area. Proper site was marked and identified by the surgeon. The patient was taken back to the operating theater where after adequate anesthesia, the patient was placed in the right lateral decubitus position. Axillary roll was placed. Pegs were placed. The patient's gluteal fold was parallel to the floor. All pegs were well padded. The left hip was then sterilely prepped and draped in the usual sterile fashion. OR time-out was performed. The patient received 2 g IV Ancef. At this time, 3 stab incisions were made on the iliac crest 3 fingerbreadths posterior to the ASIS. The [employer] robotic array was then placed along with three 4.0 Schanz pins. This was placed down onto the iliac crest. A standard posterior incision was made. This was taken down to the IT band and gluteal fascia, which was incised along the incisional length. Charnley retractor was then placed, identifying the short external rotators. A capsulotomy as well as takedown of short external rotators was done from the level of the piriformis down to the lesser trochanter. Checkpoint was placed on the greater trochanter and leg lengths were measured using [employer] robotics from the checkpoint to the checkpoint down by the knee. At this time, hip was dislocated. Neck cut was completed and found to be adequate. Attention was turned to the acetabulum. Anterior and posterior acetabular retractors were then placed. Circumferential removal of the labrum as well as pulvinar was done at this time. Checkpoint was placed on the superior rim of the acetabulum. The 3 points on the Ric[employer] Jama robotic array on the iliac crest were then undertaken. 15 points were obtained intra-articularly. The anterior and posterior horns were marked as well as 15 points extra-articularly around the acetabular rim. The [employer] robotic arm was brought in with a 54 mm reamer. The ream was then completed until all the green was gone on the [employer] robotic . At this time, the reamer was removed. A 54 mm solid Tritanium II acetabular cup was then placed on the [employer] robotic arm. It was impacted into place in 45 degrees of abduction and 20 degrees of anteversion. It was found to have adequate fit. The 36 mm liner was then impacted into place. Attention was turned to the femur. Box chisel was used out laterally. Starter awl was placed down the canal. Starting with a 0 broach, I was able to broach up to a size 5, which was found to be rotationally and vertically stable. A 127-degree neck angle was trialed as well as a 36, +0 head. The patient had adequate bahai of leg lengths, which was checked with [employer] robotic array and was stable throughout range of motion. Bone hook was used to dislocate the hip. Trial implants were then removed. Size 5 Accolade II stem was impacted into place along with 36, +0 Biolox femoral head. Hip was then relocated. #5 Ethibond suture was used for closure of the short external rotators and capsule. 1 L pulse lavage irrigation with Ancef was irrigated through the hip along with 400 mL IrriSept irrigation. Periarticular injection was completed. Topical tranexamic acid and vancomycin powder were applied. A #2 barbed suture was used for closure of the IT band and gluteal fascia. 2-0 Vicryl was used subcutaneously and Prineo was used for closure of the skin. The [employer] robotic array as well as pins were removed and nylon was used for closure of the portal incisions. The patient had a sterile soft dressing applied and was sent to the PACU in stable condition. MMODAL /[id number]
== END 2021-03-19 13:39 | disposition home or self-care (01) ==
LOC: JD.SDS 07:07
PROVIDERS: ATTEND Orthopaedic Surgery
DX: M16.12 Unilateral primary osteoarthritis, left hip (principal); I10 Essential (primary) hypertension; E78.00 Pure hypercholesterolemia, unspecified; E78.5 Hyperlipidemia, unspecified; Z88.0 Allergy status to penicillin; Z88.2 Allergy status to sulfonamides; Z91.041 Radiographic dye allergy status; Z79.82 Long term (current) use of aspirin; Z79.899 Other long term (current) drug therapy; Z87.891 Personal history of nicotine dependence
CPT/HCPCS: 27130; 73501; 97116; 97161; C1713; C1776; J0171; J0690; J0697; J1885; J2250; J2270; J2405; J2704; J3010; J3370; J7120; 01214; 99100

== ENCOUNTER 2022-04-12 23:47 | Emergency (ER) | payer MEDICARE, BC ==
[2022-04-13] MEDS ORDERED: Ondansetron 4 MG/2 ML SDV IVPUSH ONE (02:24)
[2022-04-13] MEDS ORDERED: HYDROmorphone 0.5 MG/0.5 ML Syringe IVPUSH ONE (02:24)
[2022-04-13] MEDS ORDERED: Tamsulosin 0.4 MG Cap.ER PO ONE (02:27)
[2022-04-13] MEDS ORDERED: Sodium Chloride 0.9% 1,000 ML IV SCH (02:30)
[2022-04-13 03:06] LABS: ESTIMATED GFR 53 mL/min (>60)
[2022-04-13 03:57] VITALS: BP 130/64; PULSE 71
== END 2022-04-13 04:01 | disposition home or self-care (01) ==
LOC: JD.ED 23:47
DX: N13.2 Hydronephrosis with renal and ureteral calculous obstruction (principal); I10 Essential (primary) hypertension; E78.00 Pure hypercholesterolemia, unspecified; E66.9 Obesity, unspecified; Z91.041 Radiographic dye allergy status; Z88.0 Allergy status to penicillin; Z88.2 Allergy status to sulfonamides; Z68.37 Body mass index [BMI] 37.0-37.9, adult; Z79.82 Long term (current) use of aspirin; Z79.899 Other long term (current) drug therapy; Z87.891 Personal history of nicotine dependence
CPT/HCPCS: 36415; 74176; 80053; 81001; 85007; 85027; 87086; 96361; 96374; 96375; 99284; A9270; J1170; J2405; J7030

== ENCOUNTER 2025-07-05 13:18 | Inpatient (IN) | payer MEDICARE, OTHER ==
[2025-07-05] MEDS: diphenhydrAMINE 50 MG/ML SDV IVPUSH ONE (14:29)
[2025-07-05] MEDS: methylPREDNISolone Sodium Succinate 125 MG/2 ML SDV IVPUSH ONE (14:31)
[2025-07-05] MEDS: Sodium Chloride 0.9% 10 ML Syringe FLUSH ONE (14:31)
[2025-07-05] MEDS: Iopamidol 612 MG/ML 100 ML Bottle IVPUSH ONE (15:12)
[2025-07-05] MEDS ORDERED: Ondansetron 4 MG/2 ML SDV IV PRN (16:14)
[2025-07-06 05:58] LABS: A/G RATIO 0.7 (1-2); ALANINE AMINOTRANSFERASE,ALT 27.0 U/L (14-59); ASPARTATE AMNIOTRANSFERASE,AST 17.0 U/L (15-37); BILIRUBIN TOTAL 0.3 mg/dL (0.2-1.0); BLOOD UREA NITROGEN,BUN 23.0 mg/dL (7-18); CARBON DIOXIDE,CO2 32.0 mEq/L (21-32); CHLORIDE,CL 102.0 mEq/L (98-107); CREATININE 0.8 mg/dL (0.55-1.02); EST CRCL DRUG DOSING (CG) 49.49 mL/min; ESTIMATED GFR 76.0 mL/min (>60); GLUCOSE RANDOM 158.0 mg/dL (70-99); POTASSIUM,K 4.5 mEq/L (3.5-5.1); PROTEIN TOTAL,TP 6.6 g/dl (6.4-8.2); SODIUM,NA 140.0 mEq/L (136-145)
[2025-07-06] MEDS ORDERED: Benzocaine/Cetylpyridinium/Menthol Lozenge MUCMEM PRN (07:35)
[2025-07-06] MEDS: Dextromethorphan HBr 30 MG/5 ML Susp ML PO PRN (07:40)
[2025-07-06] MEDS: Albuterol 0.083% 2.5 MG/3 ML Neb Soln NEB PRN (14:08)
[2025-07-07 05:50] LABS: A/G RATIO 0.8 (1-2); ALANINE AMINOTRANSFERASE,ALT 27.0 U/L (14-59); ASPARTATE AMNIOTRANSFERASE,AST 16.0 U/L (15-37); BILIRUBIN TOTAL 0.2 mg/dL (0.2-1.0); BLOOD UREA NITROGEN,BUN 26.0 mg/dL (7-18); CARBON DIOXIDE,CO2 34.0 mEq/L (21-32); CHLORIDE,CL 104.0 mEq/L (98-107); CREATININE 1.0 mg/dL (0.55-1.02); EST CRCL DRUG DOSING (CG) 39.59 mL/min; ESTIMATED GFR 58.0 mL/min (>60); GLUCOSE RANDOM 98.0 mg/dL (70-99); POTASSIUM,K 4.0 mEq/L (3.5-5.1); PROTEIN TOTAL,TP 5.9 g/dl (6.4-8.2); SODIUM,NA 142.0 mEq/L (136-145)
[2025-07-08 04:53] VITALS: BP 123/85; PULSE 59
== END 2025-07-08 11:40 | disposition home or self-care (01) | DRG 189 ==
LOC: JD.ED 13:18 → JD.MS 15:57
PROVIDERS: ADMIT Internal Medicine; ATTEND Internal Medicine
DX: J96.01 Acute respiratory failure with hypoxia (principal); J20.9 Acute bronchitis, unspecified; J40 Bronchitis, not specified as acute or chronic; H54.7 Unspecified visual loss; Z68.39 Body mass index [BMI] 39.0-39.9, adult; R09.02 Hypoxemia; M54.9 Dorsalgia, unspecified; G89.29 Other chronic pain; M19.90 Unspecified osteoarthritis, unspecified site; I10 Essential (primary) hypertension; G62.9 Polyneuropathy, unspecified; Z96.649 Presence of unspecified artificial hip joint; Z96.659 Presence of unspecified artificial knee joint; Z98.49 Cataract extraction status, unspecified eye; E78.00 Pure hypercholesterolemia, unspecified; Z98.890 Other specified postprocedural states; E66.9 Obesity, unspecified; Z88.0 Allergy status to penicillin; Z88.2 Allergy status to sulfonamides; Z91.041 Radiographic dye allergy status; Z98.51 Tubal ligation status; Z88.8 Allergy status to other drugs, medicaments and biological substances; Z79.899 Other long term (current) drug therapy; Z90.49 Acquired absence of other specified parts of digestive tract
CPT/HCPCS: 36415 ×2; 71046; 71275; 80053; 84484 ×2; 85025; 85379; 86140; 86738; 87637; 93005; 94640; 96374; 96375; 99285; A9270; J1200; Q9967; 93010; 93971-26-RT; 93971-RT; 94668; 94761; 99215; J1650; J2919; J7512